=== PATIENT | female | born 1965 | race American Indian/Alaskan Native ===

== ENCOUNTER 2018-11-15 18:44 | Emergency (ER) | payer SELFPAY ==
--- NOTE | 2018-11-15 19:22 | Emergency Department Report ---
Blank Doc - Documentation Documentation: This is a 53-year-old female that presents with vaginal bleeding x1 week. Sta nahid has some dizziness. This initial assessment/diagnostic orders/clinical plan/treatment(s) is/are subject to change based on patient's health status, clinical progression and re- assessment by fellow clinical providers in the ED. Further treatment and workup at subsequent clinical providers discretion. Patient/guardians urged not to elope from the ED as their condition may be serious if not clinically assessed and managed. Initial orders include: 1- Patient sent to [facility] for further evaluation and treatment 2- labs 3- UA
[2018-11-15 19:24] VITALS: BP 137/82
[2018-11-15 19:43] LABS: Basophils # (Auto) 0.1 K/mm3 (0.0-0.1); Eosinophils # (Auto) 0.1 K/mm3 (0.0-0.4); Eosinophils % (Auto) 1.1 % (0.0-4.3); Hematocrit 33.2 % (30.3-42.9); Hemoglobin 10.8 gm/dl (10.1-14.3); Lymphocytes # (Auto) 1.9 K/mm3 (1.2-5.4); Mean Corpuscular HGB Conc 32 % (30-34); Mean Corpuscular Volume 80 fl (79-97); Monocytes # (Auto) 0.8 K/mm3 (0.0-0.8); Monocytes % (Auto) 7.7 % (0.0-7.3); Platelet Count 297 K/mm3 (140-440); Red Blood Count 4.17 M/mm3 (3.65-5.03); Red Cell Distribution Width 17.4 % (13.2-15.2)
[2018-11-15 19:53] LABS: BUN/Creatinine Ratio 14; Blood Urea Nitrogen 11 mg/dL (7-17); Calcium 9.3 mg/dL (8.4-10.2); Hemolysis Index 14
[2018-11-15 21:08] LABS: Bilirubin,Urine NEG (Negative); Color,Urine Red (Yellow)
[2018-11-15 21:09] LABS: Blood,Urine LG (Negative); Mucus,Urine 1+ /HPF; RBC,Urine > 182.0 /HPF (0.0-6.0); Urobilinogen,Urine < 2.0 mg/dL (<2.0)
[2018-11-15 21:10] LABS: HCG Qualitative,Urine Negative (Negative)
[2018-11-15] MEDS ORDERED: ROCEPHIN IM ONE (22:38)
[2018-11-15] MEDS ORDERED: TORADOL IM ONE (22:38)
[2018-11-15] MEDS ORDERED: XYLOCAINE 1% MPF 5 mL INFILTRATI ONE (22:38)
--- NOTE | 2018-11-15 23:40 | Ultrasound Report ---
PROCEDURE: US PELVIC COMPLETE TECHNIQUE: Real-time transabdominal sonography in multiple planes of the pelvis was performed. The p elvic structures, especially the ovaries, were not optimally visualized. Transvaginal sonography was then performed to better evaluate the structures and/or abnormalities described below with image docu mentation. HISTORY: pelvic pain, heavy vaginal bleeding COMPARISONS: None . FINDINGS: UTERUS Size: 14 x 10.4 x 10.2 cm. Endometrial thickness: Not well evaluated due to fibroid within the endometrial region Orientation: anteverted. Cervix: Normal. Fibroids/masses: There is a fibroid identified within the mid uterine myometrium causing pressure on the endometrial region. The fibroid measures up to 7.1 cm.. RIGHT Ovary: Not visualized LEFT Ovary: Not visualized Pelvic fluid: None. Other: None. IMPRESSION: The uterus is enlarged. A large fibroid tumor in the mid uterine myometrium measures up to 7.1 cm. This does obscure the endometrium. Neither ovary is identified on this study.. This document is electronically signed by Fara Montes DO., November 15 2018 11:38:00 PM ET
--- NOTE | 2018-11-15 23:58 | Emergency Department Report ---
ED Female HPI - General Chief complaint: Vaginal Bleeding Stated complaint: HEAVY FLOW/WEAK/DIZZY/CRAMPS EXTREME Time Seen by Provider: 11/15/18 19:21 Source: patient Mode of arrival: Ambulatory Limitations: No Limitations - History of Present Illness Initial comments: Pt is a 53 yo female who presents to the ED with c/o heavy vaginal bleeding that began 4 days ago. She states she has been passing clots and is having to frequently change her sanitary pad. The patient has associated suprapubic abd cramping. She denies any dysuria or vaginal discharge. She denies any fever or N/V. She denies any prior hx of fibroids. she states she last saw an PROPERTY MANAGEMENT COORDINATOR about a year ago. She states she has not been sexually active for a year. - Related Data Previous Rx's Medication Instructions Recorded Last Taken Type Ibuprofen 600 mg PO Q6HR PRN #20 tablet 11/15/18 Unknown Rx Nitrofurantoin Cole/M-Cryst 100 mg PO Q12HR 5 Days #10 capsule 11/15/18 Unknown Rx [Macrobid CAP] Phenazopyridine [Pyridium] 100 mg PO TID #14 tab 11/15/18 Unknown Rx medroxyPROGESTERone ACETATE 10 mg PO QDAY 10 Days #10 tablet 11/15/18 Unknown Rx [Provera] traMADol [Ultram 50 MG tab] 50 mg PO Q6HR PRN #10 tablet 11/15/18 Unknown Rx Allergies Allergy/AdvReac Type Severity Reaction Status Date / Time No Known Allergies Allergy Verified 11/15/18 18:48 ED Review of Systems ROS: Stated complaint: HEAVY FLOW/WEAK/DIZZY/CRAMPS EXTREME Other details as noted in HPI Comment: All other systems reviewed and negative ED Past Medical Hx - Past Medical History Hx Hypertension: Yes Additional medical history: Obesity - Surgical History Past Surgical History?: No - Social History Smoking Status: Never Smoker Substance Use Type: None - Medications Home Medications: Home Medications Medication Instructions Recorded Confirmed Last Taken Type Ibuprofen 600 mg PO Q6HR PRN #20 tablet 11/15/18 Unknown Rx Nitrofurantoin Cole/M-Cryst 100 mg PO Q12HR 5 Days #10 capsule 11/15/18 Unknown Rx [Macrobid CAP] Phenazopyridine [Pyridium] 100 mg PO TID #14 tab 03/28/19 Unknown Rx medroxyPROGESTERone ACETATE 10 mg PO QDAY 10 Days #10 tablet 11/15/18 Unknown Rx [Provera] traMADol [Ultram 50 MG tab] 50 mg PO Q6HR PRN #10 tablet 11/15/18 Unknown Rx ED Physical Exam - General Limitations: No Limitations General appearance: alert, in no apparent distress - Head Head exam: Present: atraumatic, normocephalic - Eye Eye exam: Present: normal appearance - ENT ENT exam: Present: mucous membranes moist - Respiratory Respiratory exam: Present: normal lung sounds bilaterally. Absent: respiratory distress, wheezes, rales, rhonchi, stridor, chest wall tenderness, accessory muscle use, decreased breath sounds, prolonged expiratory - Cardiovascular Cardiovascular Exam: Present: regular rate, normal rhythm, normal heart sounds. Absent: systolic murmur, rubs, gallop - GI/Abdominal GI/Abdominal exam: Present: soft, tenderness (mild suprapubic tenderness ), normal bowel sounds. Absent: distended, guarding, rebound, rigid - Back Exam Back exam: Absent: CVA tenderness (R), CVA tenderness (L) - Neurological Exam Neurological exam: Present: alert, oriented X3 - Psychiatric Psychiatric exam: Present: normal affect, normal mood - Skin Skin exam: Present: warm, dry, intact ED Course Vital Signs 11/15/18 19:21 Temperature 99.7 F H Pulse Rate 101 H Respiratory 16 Rate Blood Pressure 137/82 ED Medical Decision Making - Lab Data Result diagrams: 11/15/18 19:25 11/15/18 19:25 Laboratory Results - last 24 hr 11/15/18 11/15/18 11/15/18 19:25 19:25 19:30 WBC 10.8 RBC 4.17 Hgb 10.8 Hct 33.2 MCV 80 MCH 26 L MCHC 32 RDW 17.4 H Plt Count 297 Lymph % (Auto) 18.0 Cole % (Auto) 7.7 H Eos % (Auto) 1.1 Baso % (Auto) 1.0 Lymph # 1.9 Cole # 0.8 Eos # 0.1 Baso # 0.1 Seg Neutrophils % 72.2 H Seg Neutrophils # 7.8 H Sodium 137 Potassium 3.8 Chloride 96.7 L Carbon Dioxide 27 Anion Gap 17 BUN 11 Creatinine 0.8 Estimated GFR > 60 BUN/Creatinine Ratio 14 Glucose 99 Calcium 9.3 Urine Color Urine Turbidity Urine pH Ur Specific [place] Urine Protein Urine Glucose (UA) Urine Ketones Urine Blood Urine Nitrite Urine Bilirubin Urine Urobilinogen Ur Leukocyte Esterase Urine WBC (Auto) Urine RBC (Auto) Urine Mucus Urine HCG, Qual Blood Type B POSITIVE Antibody Screen Negative 11/15/18 20:39 WBC RBC Hgb Hct MCV MCH MCHC RDW Plt Count Lymph % (Auto) Cole % (Auto) Eos % (Auto) Baso % (Auto) Lymph # Cole # Eos # Baso # Seg Neutrophils % Seg Neutrophils # Sodium Potassium Chloride Carbon Dioxide Anion Gap BUN Creatinine Estimated GFR BUN/Creatinine Ratio Glucose Calcium Urine Color Red Urine Turbidity Cloudy Urine pH 5.0 Ur Specific [place] 1.026 Urine Protein 100 mg/dl Urine Glucose (UA) 50 Urine Ketones Neg Urine Blood Lg Urine Nitrite Neg Urine Bilirubin Neg Urine Urobilinogen < 2.0 Ur Leukocyte Esterase Tr Urine WBC (Auto) 47.0 H Urine RBC (Auto) > 182.0 Urine Mucus 1+ Urine HCG, Qual Negative Blood Type Antibody Screen - Radiology Data Radiology results: report reviewed PROCEDURE: US TRANSVAGINAL TECHNIQUE: Real-time transabdominal sonography in multiple planes of the pelvis was performed. The pelvic structures, especially the ovaries, were not optimally visualized. Transvaginal sonography was then performed to better evaluate the structures and/or abnormalities described below with image documentation. HISTORY: pelvic pain, heavy vaginal bleeding COMPARISONS: None . FINDINGS: UTERUS Size: 14 x 10.4 x 10.2 cm. Endometrial thickness: Not well evaluated due to fibroid within the endometrial region Orientation: anteverted. Cervix: Normal. Fibroids/masses: There is a fibroid identified within the mid uterine myometrium causing pressure on the endometrial region. The fibroid measures up to 7.1 cm.. RIGHT Ovary: Not visualized LEFT Ovary: Not visualized Pelvic fluid: None. Other: None. IMPRESSION: The uterus is enlarged. A large fibroid tumor in the mid uterine myometrium measures up to 7.1 cm. This does obscure the endometrium. Neither ovary is identified on this study.. This document is electronically signed by Fara Montes DO., November 15 2018 11:38:44 PM ET - Medical Decision Making Pt is a 53 yo female who presents to the ED with c/o heavy vaginal bleeding that began 4 days ago. She states she has been passing clots and is having to frequently change her sanitary pad. The patient has associated suprapubic abd cramping. She denies any dysuria or vaginal discharge. She denies any fever or N/V. She denies any prior hx of fibroids. she states she last saw an PROPERTY MANAGEMENT COORDINATOR about a year ago. She states she has not been sexually active for a year. Labs WNL, H/H is normal. VSS. UA shows evidence of UTI. US pelvic shows a 7.1 cm fibroid. Pt given tx for UTI, something for pain, and provera to help with bleeding. Advised to follow up with PROPERTY MANAGEMENT COORDINATOR [facility] and primary care doctor in the next 2-3 days. Pt given copy of US results. Advised to take all medication as prescribed. Return to the ED for any new or worsening symptoms. - Differential Diagnosis UTI, cysts, fibroids, menorrhagia, AUB Critical care attestation.: If time is entered above; I have spent that time in minutes in the direct care of this critically ill patient, excluding procedure time. ED Disposition Clinical Impression: Fibroid, Episode of heavy vaginal bleeding UTI (urinary tract infection) Qualifiers: Urinary tract infection type: acute cystitis Hematuria presence: with hematuria Qualified Code(s): N30.01 - Acute cystitis with hematuria Disposition: TO HOME OR SELFCARE Is pt being admited?: No Does the pt Need Aspirin: No Condition: Stable Instructions: Uterine Fibroids (ED), Urinary Tract Infection in Women (ED) Additional Instructions: Follow up with an PROPERTY MANAGEMENT COORDINATOR [facility]. Keep your appointment with your primary care doctor on November 19. Take medication as prescribed. Return to the emergency room for any new or worsening symptoms. Prescriptions: Ibuprofen 600 mg PO Q6HR PRN #20 tablet PRN Reason: Pain, Mild (1-3) Nitrofurantoin Cole/M-Cryst [Macrobid CAP] 100 mg PO Q12HR 5 Days #10 capsule medroxyPROGESTERone ACETATE [Provera] 10 mg PO QDAY 10 Days #10 tablet Phenazopyridine [Pyridium] 100 mg PO TID #14 tab traMADol [Ultram 50 MG tab] 50 mg PO Q6HR PRN #10 tablet PRN Reason: Pain Referrals: KATIE CHRISTIANSON MD [Primary Care Provider] - 2-3 Days [facility] [Provider [facility]] - [facility] Time of Disposition: 23:52 Print Language: SLOVAK
== END 2018-11-16 00:10 | disposition home or self-care (01) ==
LOC: ED 18:44
DX: D21.9 Benign neoplasm of connective and other soft tissue, unspecified (principal); N39.0 Urinary tract infection, site not specified; N93.9 Abnormal uterine and vaginal bleeding, unspecified; I10 Essential (primary) hypertension; E66.9 Obesity, unspecified
CPT/HCPCS: 36415; 76830; 76856; 80048; 81001; 81025; 85025; 86850; 86900; 86901; 96372; 99284; J0696; J1885

== ENCOUNTER 2020-10-08 12:03 | Outpatient (CLI) | payer MEDICARE ==
[2020-10-08 12:31] LABS: Basophils # (Auto) 0.1 K/mm3 (0.0-0.1); Basophils % (Auto) 0.8 % (0.0-1.8); Eosinophils # (Auto) 0.2 K/mm3 (0.0-0.4); Eosinophils % (Auto) 2.4 % (0.0-4.3); Hematocrit 39.6 % (30.3-42.9); Hemoglobin 13.5 gm/dl (10.1-14.3); Lymphocytes # (Auto) 1.9 K/mm3 (1.2-5.4); Lymphocytes % (Auto) 28.7 % (13.4-35.0); Mean Corpuscular HGB Conc 34 % (30-34); Mean Corpuscular Volume 90 fl (79-97); Monocytes # (Auto) 0.5 K/mm3 (0.0-0.8); Platelet Count 260 K/mm3 (140-440); Red Cell Distribution Width 14.3 % (13.2-15.2)
[2020-10-08 12:50] LABS: % Iron Saturation 21.88 %; Alanine Aminotransferase 15 units/L (7-56); Albumin 4.1 g/dL (3.9-5); BUN/Creatinine Ratio 18; Blood Urea Nitrogen 14 mg/dL (7-17); Calcium 9.8 mg/dL (8.4-10.2); Chol/HDL Ratio 3.79 %; HDL Cholesterol 48 mg/dL (40-59); Hemolysis Index 5; Iron 63 ug/dL (37-170); LDL Cholesterol,Direct 128 mg/dL (50-130); Total Iron Binding Capacity 288 mcg/dL (250-450)
[2020-10-11 21:31] LABS: Vitamin D, 25-OH, D2 <4 ng/mL
== END 2020-10-08 12:04 | disposition home or self-care (01) ==
LOC: LAB 12:03
PROVIDERS: ATTEND Surgery
DX: E11.9 Type 2 diabetes mellitus without complications (principal); E66.01 Morbid (severe) obesity due to excess calories; K30 Functional dyspepsia; R79.1 Abnormal coagulation profile
CPT/HCPCS: 36415; 80053; 80061; 82306; 82607; 82728; 83036; 83550; 84443; 85025; 85730

== ENCOUNTER 2020-10-30 07:12 | Outpatient (CLI) | payer MEDICARE ==
--- NOTE | 2020-10-30 09:10 | Fluoroscopy Report ---
Upper GI HISTORY: FUNCTIONAL DYSPEPSIA. Technique: Single contrast barium technique utilized to evaluate the esophagus, stomach, and duodena l C-loop. Findings: The patient stood for the entire exam. No mucosal irregularity, mass, mass effect, or critical stenosis. There were no abnormal tertiary c ontractions as seen with dysmotility. No gastroesophageal reflux. Impression: Unremarkable exam. Fluoroscopic time: 2.8 minutes Number of fluoroscopic images: 16 Signer Name: Fady Atkinson MD Signed: 10/30/2020 9:05 AM Workstation Name: [id number]
--- NOTE | 2020-10-30 10:44 | Treadmill Report ---
TREADMILL STRESS TEST REFERRING PHYSICIAN: Dr. Dominguez. PROCEDURE IN DETAIL: The patient was brought to the stress lab in a postabsorptive state exercised on a standard Raoul protocol treadmill. She went 6 minutes and 30 seconds on a standard Raoul protocol treadmill. No chest pain or arrhythmias. Baseline EKG is normal. Baseline heart rate is 60, peak heart rate was 150, target heart rate is 141, peak blood pressure is 157/80. She has no chest pain, no EKG changes, no arrhythmias. The patient did well during stress and recovery. CONCLUSIONS: 1. Normal exercise stress test without evidence of diagnostic ST changes, arrhythmias, or chest pain during stress or recovery. 2. Average exercise tolerance. 3. Appropriate heart rate/blood pressure response in recovery. JOB# [id number] IAM/KAYLEE
== END 2020-10-30 07:13 | disposition home or self-care (01) ==
LOC: FLUORO 07:12
PROVIDERS: ATTEND Surgery
DX: K30 Functional dyspepsia (principal)
CPT/HCPCS: 74246; 93017

== ENCOUNTER → 2020-12-24 | Outpatient (CLI) | payer MEDICARE | END | disposition home or self-care (01) | LOC: SLR 11:00 | PROVIDERS: ATTEND Surgery | DX: G47.33 Obstructive sleep apnea (adult) (pediatric) (principal); R40.0 Somnolence; E66.9 Obesity, unspecified | CPT/HCPCS: G0399 ==

== ENCOUNTER → 2021-01-21 | Outpatient (CLI) | payer MEDICARE | END | disposition home or self-care (01) | LOC: SLR 11:00 | PROVIDERS: ATTEND Otolaryngology | DX: G47.33 Obstructive sleep apnea (adult) (pediatric) (principal); E66.9 Obesity, unspecified; R40.0 Somnolence | CPT/HCPCS: 95811 ==

== ENCOUNTER 2021-02-03 11:58 | Outpatient (CLI) | payer MEDICARE ==
--- NOTE | 2021-02-05 03:56 | Pulmonary Function Test ---
DATE OF VISIT: 02/03/2021 PULMONARY FUNCTION TEST INTERPRETATION DATE OF SERVICE: 02/03/2021. SPIROMETRY: FVC 3.05 liters, which is 103% of the predicted. FEV1 is 2.64 liters, which is 110% of the predicted. FEV1/FVC ratio is 85. Flow volume loop. FEF 25-75% is 3.06 liters per second, which is 127% of the predicted. The patient's MVV is 77% of the predicted. IMPRESSION: Normal spirometry. TID: [id number] RECEIPT: [id number] [facility] cc: Niraj Dominguez
== END 2021-02-03 11:59 | disposition home or self-care (01) ==
LOC: PF 11:58
PROVIDERS: ATTEND Surgery
DX: R06.02 Shortness of breath (principal); E66.2 Morbid (severe) obesity with alveolar hypoventilation
CPT/HCPCS: 94010

== ENCOUNTER 2021-05-11 07:51 | Day surgery (SDC) | payer MEDICARE ==
[~2021-05-11 07:51] MED LIST: SODIUM CHLORIDE 0.9% 1000 ML 1,000 ML IV SCH
--- NOTE | 2021-05-11 09:35 | Discharge Summary ---
Providers - Providers Date of Admission: 05/11/2021 Date of discharge: 05/11/21 Attending physician: DENNYS BELL MD Primary care physician: LOI WEAVER NP Hospitalization Reason for admission: pre-op planning for bariatric surgery Condition: Good Procedures: egd with bx Hospital course: Pt presented for a pre-op EGD as part of planning for up coming bariatric surgery. Procedure was uneventful and pt recovered well and was discharged to home. Disposition: 01 HOME / SELF CARE / HOMELESS Final Discharge Diagnosis (Prints w/discharge instructions): morbid obesity, gerd Core Measure Documentation - Palliative Care Palliative Care/ Comfort Measures: Not Applicable - Core Measures Any of the following diagnoses?: none Exam - Physical Exam Narrative exam: unchanged from pre-op Plan Activity: advance as tolerated Diet: low carbohydrate Follow up with: LOI WEAVER NP [Primary Care Provider] - 7 Days
--- NOTE | 2021-05-11 09:36 | Operative Report ---
Operative Report Operative Report: DATE: 05/11/2021 SURGERY: Upper endoscopy. SURGEON: Niraj Dominguez M.D. PROCEDURE: EGD with biopsy PRE OP DX: morbid obesity, GERD POST OP DX: morbid obesity, GERD TYPE OF ANESTHESIA: MAC. ESTIMATED BLOOD LOSS: None. COMPLICATIONS: None. SPECIMENS REMOVED: antral biopsy FINDINGS: 1. Small hiatal hernia. 2. Otherwise, normal esophagus, stomach and first portion of duodenum. INDICATIONS:INDICATION FOR PROCEDURE: Patient is a 56-year-old female with a long history of morbid obesity. She is planned to have a weight loss procedure and is here for preoperative planning EGD. PROCEDURE DETAILS: After consent was reviewed, patient was taken back to the operating room where patient was placed in the left lateral decubitus position and a bite block was placed in the mouth. After a time-out was called, MAC anesthesia was initiated. I then passed the endoscope into her oropharynx, into her esophagus, visualized the entire esophagus, which was all within normal limits. Z-line was noted to about 38cm from incisors. I then visualized the stomach and the first portion of the duodenum and there were no abnormalities I could clearly visualize except for antral gastritis. A cold forceps biopsy of the antrum was taken and will be sent to pathology to evaluate for H.pylori. I then retroflexed the scope in the stomach and visualized the hiatus and I could see a small hiatal hernia. I then desufflated the stomach and removed the endoscope. Patient tolerated procedure well and was transferred to recovery room in good and stable condition.
--- NOTE | 2021-05-11 09:38 | Anesthesia Consultation ---
Anesthesia Consult and Med Hx Date of service: 05/11/21 - Airway Anesthetic Teeth Evaluation: Poor (some missing teeth) ROM Head & Neck: Adequate Mental/Hyoid Distance: Adequate Mallampati Class: Class III Intubation Access Assessment: Possibly Difficult - Pre-Operative Health Status ASA Pre-Surgery Classification: ASA3 Proposed Anesthetic Plan: MAC - Pulmonary Hx Smoking: Yes Hx Asthma: Yes Hx Sleep Apnea: Yes (uses BiPAP) - Cardiovascular System Hx Hypertension: Yes - Central Nervous System Hx Psychiatric Problems: Yes (anxiety/depression) - Gastrointestinal Hx Gastroesophageal Reflux Disease: Yes - Other Systems Hx Obesity: Yes (Morbid obesity, BMI 50.5)
--- NOTE | 2021-05-11 09:40 | Anesthesia Day of Surgery ---
Anesthesia Day of Surgery - Day of Surgery Patient Examined: Yes Patient H&P Reviewed: Yes Patient is NPO: Yes
[2021-05-11] MEDS ORDERED: propofoL 200 MG/20 ML VIAL IV ONE (10:34)
[2021-05-11 12:07] VITALS: BP 127/71
--- NOTE | 2021-05-11 17:49 | Post Anesthesia Evaluation ---
- Post Anesthesia Evaluation Patient Participated: Yes Airway Patent: Yes Stable Respiratory Function: Yes Nausea/Vomiting: No Temp > 96.8F: Yes Pain Manageable: Yes Adequeate Hydration: Yes Anesthesia Complications: No Block Receding Appropriately: Not Applicable Patient on Ventilator: No
== END 2021-05-11 12:15 | disposition home or self-care (01) ==
LOC: GIO 07:51
PROVIDERS: ATTEND Surgery
DX: E66.01 Morbid (severe) obesity due to excess calories (principal); K21.9 Gastro-esophageal reflux disease without esophagitis; K30 Functional dyspepsia; K44.9 Diaphragmatic hernia without obstruction or gangrene; K29.60 Other gastritis without bleeding; K31.89 Other diseases of stomach and duodenum; I10 Essential (primary) hypertension; G47.30 Sleep apnea, unspecified; F41.9 Anxiety disorder, unspecified; F32.9 Major depressive disorder, single episode, unspecified; J45.909 Unspecified asthma, uncomplicated; Z79.899 Other long term (current) drug therapy; Z68.43 Body mass index [BMI] 50.0-59.9, adult
CPT/HCPCS: 43239; 88305; 88342; J2704; J7030

== ENCOUNTER 2021-06-28 06:09 | Inpatient (IN) | payer MEDICARE ==
--- NOTE | 2021-06-23 14:07 | Anesthesia Consultation ---
Anesthesia Consult and Med Hx Date of service: 06/28/21 - Airway Anesthetic Teeth Evaluation: Partials (Upper) ROM Head & Neck: Adequate Mental/Hyoid Distance: Adequate Mallampati Class: Class I Intubation Access Assessment: Good - Pre-Operative Health Status ASA Pre-Surgery Classification: ASA3 Proposed Anesthetic Plan: General - Pulmonary Hx Smoking: Yes Hx Asthma: Yes Hx Respiratory Symptoms: No (+2FS. + Pulm clearance) Hx Sleep Apnea: Yes - Cardiovascular System Hx Hypertension: Yes Hx Heart Attack/AMI: No (Negative stress test) - Central Nervous System Hx Psychiatric Problems: No (+Psych clearance) - Gastrointestinal Hx Gastroesophageal Reflux Disease: Yes - Endocrine Hx Non-Insulin Dependent Diabetes: No - Hematic Hx Sickle Cell Disease: No - Other Systems Hx Alcohol Use: Yes (Occas) Hx Substance Use: Yes (Marijuana daily) Hx Cancer: No Hx Obesity: Yes (Morbid obesity, BMI 50.5)
[2021-06-23 14:35] LABS: Hematocrit 38.2 % (30.3-42.9); Hemoglobin 12.7 gm/dl (10.1-14.3); Mean Corpuscular HGB Conc 33 % (30-34); Mean Corpuscular Volume 88 fl (79-97); Platelet Count 263 K/mm3 (140-440); Red Blood Count 4.33 M/mm3 (3.65-5.03); Red Cell Distribution Width 14.1 % (13.2-15.2)
[2021-06-23 14:50] LABS: Alanine Aminotransferase 15 units/L (7-56); Albumin 4.3 g/dL (3.9-5); Blood Urea Nitrogen 12 mg/dL (7-17); Calcium 9.6 mg/dL (8.4-10.2); Hemolysis Index 6
[2021-06-23 14:51] LABS: BUN/Creatinine Ratio 20
[~2021-06-28 06:09] MED LIST changes: +ACETAMINOPHEN IV 1,000 MG/100 ML BOTTLE IV NR; +ENOXAPARIN 40 MG/0.4 ML INJ SUB-Q NR; +GABAPENTIN 500 MG/10 ML ORAL LIQD PO NR; +MIDAZOLAM 2 MG/2 ML INJ IV NR; +PIPERACIL/TAZOBACTA 4.5/NS 100 4.5 GM/100 ML VIAL IV SCH; +SCOPOLAMINE TRANSDERMAL PATCH 72 HR TD NR; -SODIUM CHLORIDE 0.9% 1000 ML 1,000 ML IV SCH
[2021-06-28] MEDS: LACTATED RINGERS 1,000 ML IV SCH (09:00)
[2021-06-28] MEDS ORDERED: SUGAMMADEX SODIUM 200 MG/2 ML VIAL IV ONE ×2 (09:04→12:29)
[2021-06-28] MEDS ORDERED: MAGNESIUM SULFATE 4 GM/100 ML BAG IV ONE (09:05)
[2021-06-28] MEDS ORDERED: KETAMINE/STERILE WATER 50 MG/ML SYRINGE ONE (09:11)
[2021-06-28] MEDS ORDERED: dexAMETHasone 20 MG/5 ML VIAL ONE (09:11)
--- NOTE | 2021-06-28 09:14 | Anesthesia Day of Surgery ---
Anesthesia Day of Surgery - Day of Surgery Patient Examined: Yes Patient H&P Reviewed: Yes Patient is NPO: Yes
[2021-06-28] MEDS ORDERED: ONDANSETRON 4 MG/2 ML INJ IV PRN ×2 (09:15→12:57)
[2021-06-28] MEDS ORDERED: HYDROmorphone 1 MG/1 ML INJ IV PRN (09:15)
[2021-06-28] MEDS ORDERED: LIDOCAINE 1%/EPINEPHRINE 1:100,000 VIAL (20 ML) INFILTRATI ONE ×2 (09:21→10:50)
[2021-06-28] MEDS ORDERED: BUPIVACAINE/PF (0.25%) 2.5 MG/ML 30 ML VIAL INFILTRATI ONE ×2 (09:21→10:50)
[2021-06-28] MEDS ORDERED: LIDOCAINE MPF (2%) 20 MG/1 ML VIAL 5 ML ONE (09:38)
[2021-06-28] MEDS ORDERED: methOCARBAMOL 1,000 MG in SODIUM CHLORIDE 0.9% 250ML 250 ML IV ONE (10:00)
[2021-06-28] MEDS ORDERED: ePHEDrine SULFATE 50 MG/1 ML INJ ONE (10:25)
[2021-06-28] MEDS ORDERED: SODIUM CHLORIDE 0.9% IRR 1,500 ML BOTTLE IR ONE (10:51)
[2021-06-28] MEDS ORDERED: SODIUM CHLORIDE 0.9% IRRIG SOLN 2000 ML IR ONE (10:51)
[2021-06-28] MEDS ORDERED: propofoL 200 MG/20 ML VIAL IV ONE ×6 (10:58→12:14)
[2021-06-28] MEDS ORDERED: PHENYLEPHRINE/NS 1,000 MCG/10 ML SYRINGE (OR USE) IV ONE (11:00)
[2021-06-28] MEDS ORDERED: ONDANSETRON 4 MG/2 ML INJ ONE (11:43)
[2021-06-28] MEDS ORDERED: ROCURONIUM 50 MG/5 ML INJ IV ONE (11:43)
[2021-06-28] MEDS ORDERED: KETOROLAC 30 MG/1 ML INJ ONE (11:43)
[2021-06-28] MEDS ORDERED: LACTATED RINGERS 1,000 ML ONE (11:44)
[2021-06-28] MEDS ORDERED: METOCLOPRAMIDE 10 MG/2 ML INJ IV PRN (12:57)
[2021-06-28] MEDS ORDERED: hydrALAZINE 20 MG/1 ML INJ IV PRN (12:57)
[2021-06-28] MEDS ORDERED: MORPHINE 2 MG/1 ML INJ IV PRN (12:57)
[2021-06-28] MEDS ORDERED: ALBUTEROL 8.5 GM MDI INHALATION IH PRN (13:03)
--- NOTE | 2021-06-28 13:08 | Operative Report ---
Operative Report Operative Report: DATE OF PROCEDURE: SURGEON: Niraj Dominguez M.D. TUBE WINDER: Jules Vieira CSA MD PREOPERATIVE DIAGNOSIS: Morbid obesity. POSTOPERATIVE DIAGNOSES: Morbid obesity PROCEDURES PERFORMED: 1. Laparoscopic gastric bypass. 2. laparoscopic hiatal hernia repair 3. EGD. ANESTHESIA: General endotracheal tube intubation. TAP block SPECIMENS: None. ESTIMATED BLOOD LOSS: Less than 20 mL. FINDINGS: Normal anatomy. COMPLICATIONS: None. INDICATION: Ms. Manzo is a 56-year-old female with history of morbid obesity, htn, and RICCO who is here for bariatric surgery for weight loss. She signed informed consent and expressed understanding of risks and benefits. DESCRIPTION OF PROCEDURE: Patient was brought to the OR suite, laid in supine position. Bilateral lower extremity SCDs were placed. General anesthesia was induced via successful endotracheal tube intubation. Patient's abdomen was prepped and draped in sterile fashion. A veress needle was used to insuflate the abdomen to a pressure of 18 mmHg in the left subcostal region. Using Optiview technique, a 5- mm trocar was placed into the abdominal cavity under direct vision just superior and to the left of the umbilicus. There was noted to be no gross injury to any intraabdominal structures. 12 mm in the right mid abdomen mid clavicular line and three 5-mm trocars in the right upper quadrant, epigastric areas were placed under direct visualization. At this time, the ligament of Treitz identified and followed down approximately 70 cm and the jejunum was transected. The distal segment of jejunum was then traced for approximately 100 cm and a stable [id number] jejunojejunostomy was performed. The common enterotomy was closed with 2 firings of the endoscopic stapler. The mesenteric defect was closed with running Surgidac suture. This anastomosis was found to be patent without kink, obstruction or bleeding. At this time, the patient was placed in steep reverse Trendelenburg position. A liver retractor was placed through the epigastric port to elevate the left lateral lobe of the liver. The superior gastric fat pad was dissected. The right and left crura were skeletonized accentuating a moderate sized hiatal hernia with the GE junction to be approximately 2 cm above the level of the hiatus. The esophagus and GE junction were skeletonized from the hiatal hernia sac until the GE junction was resting comfortably about 2 cm below the level diaphragm without tension. An anterior crura plasty was performed using 2 Surgidac sutures in a U stitch configuration. A small gastric pouch was formed with serial firings of the blue load on a laparoscopic stapler. The Garry limb was then brought in an antegastric antecolic fashion and secured with 2 stay sutures to the gastric pouch. After this, the enterotomies were made with Harmonic scalpel, and a [id number] stapled gastrojejunostomy was performed with a mechanical stapler. After this, a 2-layer running closure using absorbable V-lock suture were done, the first being mucosal approximation prior to completion of the first layer. Then I passed and an EGD scope beyond the anastomosis to act as a stent. The first layer was completed, the second was then performed. After this, the EGD was retracted slightly. A bowel clamp was placed in a proximal Garry limb. The anastomosis was submerged under saline. Via intraluminal EGD insufflation, there was noted be no bubbles in the saline indicating an airtight anastomosis. There was noted to be no obstruction or bleeding intraluminally in the pouch or the anastomosis. At this time, the scope was removed. The saline was aspirated. Tiseel was placed over the anastomosis. All trocars were removed under direct visualization and the abdomen was then desufflated. A TAP block was performed using a total of 60 mL 0.25% Marcaine along bilateral mid axillary lines starting at the subcostal margin at the level of the umbilicus. The 12mm trocar site was closed using POD and a Mike William device for fear that after surgery it become incarcerated. The skin in cisions were closed with 4-0 Monocryl followed by Dermabond dressings. Patient was awoken and taken to recovery in stable condition. All counts were correct.
--- NOTE | 2021-06-28 15:17 | Post Anesthesia Evaluation ---
- Post Anesthesia Evaluation Patient Participated: Yes Airway Patent: Yes Stable Respiratory Function: Yes Nausea/Vomiting: No Temp > 96.8F: Yes Pain Manageable: Yes Adequeate Hydration: Yes Anesthesia Complications: No Other Comments: Patient complained of "squeezing" chest and epigastric pain in PACU. HD stable at preop baseline on minimal O2 via NC. STAT 12-lead EKG and troponins were unremarkable. Patient reassured that pain is likely due to surgical procedure however she was instructed to let floor RN know immediately if pain worsened or associated symptoms developed. Surgeon made aware of PACU events.
[2021-06-28] MEDS ORDERED: ALBUTEROL 2.5 MG/3 ML NEBU IH PRN (15:48)
[2021-06-28] MEDS: HYDROmorphone 1 MG/1 ML INJ IV PRN (18:45)
[2021-06-28] MEDS: PANTOPRAZOLE 40 MG INJ IV SCH (18:48)
[2021-06-28] MEDS: KETOROLAC 30 MG/1 ML INJ IV SCH (18:56)
[2021-06-28] MEDS: PIPERACIL/TAZOBACTA 4.5/NS 100 4.5 GM/100 ML VIAL IV SCH (21:41)
[2021-06-28] MEDS: ACETAMINOPHEN IV 1,000 MG/100 ML BOTTLE IV SCH (22:28)
[2021-06-29] MEDS: KETOROLAC 30 MG/1 ML INJ IV SCH ×5 (01:30→21:12)
[2021-06-29] MEDS: LACTATED RINGERS 1,000 ML IV SCH ×2 (04:05→16:38)
[2021-06-29] MEDS: HYDROmorphone 1 MG/1 ML INJ IV PRN ×2 (04:05→10:41)
[2021-06-29] MEDS: ACETAMINOPHEN IV 1,000 MG/100 ML BOTTLE IV SCH ×3 (04:06→20:03)
[2021-06-29] MEDS: SIMETHICONE 80 MG CHEW TAB PO PRN ×2 (04:24→14:11)
[2021-06-29] MEDS: PIPERACIL/TAZOBACTA 4.5/NS 100 4.5 GM/100 ML VIAL IV SCH ×2 (07:17→20:02)
[2021-06-29 07:34] LABS: Basophils % (Auto) 0.3 % (0.0-1.8); Eosinophils % (Auto) 0.1 % (0.0-4.3); Hemoglobin 12.9 gm/dl (10.1-14.3); Lymphocytes # (Auto) 1.1 K/mm3 (1.2-5.4); Lymphocytes % (Auto) 13.2 % (13.4-35.0); Mean Corpuscular HGB Conc 33 % (30-34); Mean Corpuscular Volume 87 fl (79-97); Monocytes # (Auto) 0.6 K/mm3 (0.0-0.8); Platelet Count 267 K/mm3 (140-440); Red Cell Distribution Width 14.1 % (13.2-15.2)
[2021-06-29 07:57] LABS: Alanine Aminotransferase 40 units/L (7-56); Albumin 3.9 g/dL (3.9-5); Blood Urea Nitrogen 10 mg/dL (7-17); Calcium 9.2 mg/dL (8.4-10.2); Hemolysis Index 7
[2021-06-29 08:37] LABS: BUN/Creatinine Ratio 14
--- NOTE | 2021-06-29 09:29 | Post Anesthesia Evaluation ---
- Post Anesthesia Evaluation Patient Participated: Yes Airway Patent: Yes Stable Respiratory Function: Yes Nausea/Vomiting: No Temp > 96.8F: Yes Pain Manageable: Yes Adequeate Hydration: Yes Anesthesia Complications: No Block Receding Appropriately: Not Applicable Patient on Ventilator: No Other Comments: Patient is mostly comfortable, ambulates. Some mild discomfort in the upper epigastrium controlled with pain meds
[2021-06-29] MEDS: PANTOPRAZOLE 40 MG INJ IV SCH (10:34)
[2021-06-29] MEDS: amLODIPine 5 MG TAB PO SCH (10:35)
[2021-06-29] MEDS: LISINOPRIL 40 MG TAB PO SCH (10:39)
[2021-06-29] MEDS: ENOXAPARIN 40 MG/0.4 ML INJ SUB-Q SCH (10:40)
--- NOTE | 2021-06-29 11:18 | Electrocardiograph Report ---
[facility] Test Date: 2021-06-28 Test Time: 14:42:05 Pat Name: LORI CALDERON Department: Room: A463 Gender: F Process Developer: TUAN : 1965 Requested By: TRISH QUEZADA Order Number: [id number] Reading MD: Shahnaz Barriga Measurements Intervals [place] Rate: 55 P: 60 NV: 181 QRS: -5 QRSD: 103 T: 36 QT: 496 QTc: 473 Interpretive Statements Sinus arrhythmia Probable left ventricular hypertrophy No previous ECG available for comparison Electronically Signed On 06-29-2021 11:18:18 EST by Shahnaz Barriga
--- NOTE | 2021-06-29 16:02 | Progress Note ---
Assessment and Plan POD#1 s/p lap gastric bypass. Afebrile and stable but not drinking enough to feel comfortable to discharge today. If does well overnight will discharge tomorrow. Encourage small more frequent sips of liquids. Subjective Date of service: 06/29/21 Narrative: No acute events overnight. Patient says pain is controlled and she is ambulating fairly well. Patient is not drinking as much as she should due to discomfort in her epigastric area which is likely due to her hiatal hernia repair. Patient denies any nausea vomiting. Objective Vital Signs - 12hr 06/29/21 06/29/21 06/29/21 04:06 07:17 10:00 Temperature 97.7 F Pulse Rate Respiratory 20 16 Rate Blood Pressure 155/96 O2 Sat by Pulse 96 Oximetry 06/29/21 06/29/21 06/29/21 10:35 10:39 11:15 Temperature 98.5 F Pulse Rate 58 L 58 L 64 Respiratory 18 Rate Blood Pressure 170/81 170/81 183/97 O2 Sat by Pulse 97 Oximetry 06/29/21 12:00 Temperature Pulse Rate Respiratory 18 Rate Blood Pressure O2 Sat by Pulse 96 Oximetry - General physical appearance well developed, no distress - Eyes PERRL - ENT no hearing loss - Respiratory normal expansion, normal respiratory effort - Abdomen soft, other (incisions c/d/i, appropriately tender to palpation) - Labs 06/29/21 06:42 06/29/21 06:42 Diabetes panel 06/29/21 Range/Units 06:42 Sodium 135 L (137-145) mmol/L Potassium 4.9 (3.6-5.0) mmol/L Chloride 99.5 (98-107) mmol/L Carbon Dioxide 23 (22-30) mmol/L BUN 10 (7-17) mg/dL Creatinine 0.7 (0.6-1.2) mg/dL Glucose 94 (65-100) mg/dL Calcium 9.2 (8.4-10.2) mg/dL AST 31 (5-40) units/L ALT 40 (7-56) units/L Alkaline Phosphatase 71 (35-129) units/L Total Protein 7.3 (6.3-8.2) g/dL Albumin 3.9 (3.9-5) g/dL Calcium panel 06/29/21 Range/Units 06:42 Calcium 9.2 (8.4-10.2) mg/dL Albumin 3.9 (3.9-5) g/dL Pituitary panel 06/29/21 Range/Units 06:42 Sodium 135 L (137-145) mmol/L Potassium 4.9 (3.6-5.0) mmol/L Chloride 99.5 (98-107) mmol/L Carbon Dioxide 23 (22-30) mmol/L BUN 10 (7-17) mg/dL Creatinine 0.7 (0.6-1.2) mg/dL Glucose 94 (65-100) mg/dL Calcium 9.2 (8.4-10.2) mg/dL Adrenal panel 06/29/21 Range/Units 06:42 Sodium 135 L (137-145) mmol/L Potassium 4.9 (3.6-5.0) mmol/L Chloride 99.5 (98-107) mmol/L Carbon Dioxide 23 (22-30) mmol/L BUN 10 (7-17) mg/dL Creatinine 0.7 (0.6-1.2) mg/dL Glucose 94 (65-100) mg/dL Calcium 9.2 (8.4-10.2) mg/dL Total Bilirubin 0.30 (0.1-1.2) mg/dL AST 31 (5-40) units/L ALT 40 (7-56) units/L Alkaline Phosphatase 71 (35-129) units/L Total Protein 7.3 (6.3-8.2) g/dL Albumin 3.9 (3.9-5) g/dL
[2021-06-29] MEDS: HYDROcodone/Acetaminophen 7.5-325MG-15ML ORAL LIQD PO PRN (16:45)
[2021-06-30] MEDS: LACTATED RINGERS 1,000 ML IV SCH (01:47)
[2021-06-30] MEDS: KETOROLAC 30 MG/1 ML INJ IV SCH ×2 (01:47→07:45)
[2021-06-30 06:55] LABS: Basophils # (Auto) 0.1 K/mm3 (0.0-0.1); Eosinophils % (Auto) 0.4 % (0.0-4.3); Hemoglobin 12.5 gm/dl (10.1-14.3); Lymphocytes # (Auto) 2.2 K/mm3 (1.2-5.4); Lymphocytes % (Auto) 35.1 % (13.4-35.0); Mean Corpuscular HGB Conc 33 % (30-34); Mean Corpuscular Volume 87 fl (79-97); Monocytes # (Auto) 0.5 K/mm3 (0.0-0.8); Monocytes % (Auto) 8.5 % (0.0-7.3); Platelet Count 245 K/mm3 (140-440); Red Blood Count 4.39 M/mm3 (3.65-5.03); Red Cell Distribution Width 14.2 % (13.2-15.2)
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
[2021-06-30 07:17] LABS: Alanine Aminotransferase 30 units/L (7-56); Albumin 3.8 g/dL (3.9-5); BUN/Creatinine Ratio 11; Blood Urea Nitrogen 8 mg/dL (7-17); Calcium 9.4 mg/dL (8.4-10.2); Hemolysis Index 15
[2021-06-30 08:29] VITALS: BP 137/69
[2021-06-30] MEDS: PANTOPRAZOLE 40 MG INJ IV SCH (09:48)
[2021-06-30] MEDS: LISINOPRIL 40 MG TAB PO SCH (09:48)
[2021-06-30] MEDS: amLODIPine 5 MG TAB PO SCH (09:50)
--- NOTE | 2021-06-30 09:51 | Discharge Summary ---
Providers - Providers Date of Admission: 06/28/21 11:50 Date of discharge: 06/30/21 Attending physician: DENNYS BELL MD 06/28/21 12:57 Physical Therapy Evaluation and Treat [CONS] Routine Comment: Reason For Exam: post op bariatric surgery Primary care physician: LOI WEAVER NP Hospitalization Reason for admission: s/p bariatric surgery Condition: Good Procedures: lap gastric bypass with hiatal hernia repair Hospital course: Patient had an uncomplicated course status post an uneventful laparoscopic gastric bypass with hiatal hernia repair for morbid obesity. Patient remained afebrile and stable with laboratory results and vitals within acceptable limits. Patient was ambulating well with pain controlled, she was tolerating her liquids better by postop day 2. She was discharged on postoperative day 2 showing no gross clinical signs of leak or bleeding. Patient to follow-up in the office in 2 weeks. Disposition: 01 HOME / SELF CARE / HOMELESS Final Discharge Diagnosis (Prints w/discharge instructions): Morbid obesity, hypertension, obstructive sleep apnea Core Measure Documentation - Palliative Care Palliative Care/ Comfort Measures: Not Applicable - Core Measures Any of the following diagnoses?: none Exam - Constitutional Vitals: Temp Pulse Resp BP Pulse Ox 98.0 F 56 L 18 137/69 97 06/30/21 07:26 06/30/21 09:48 06/30/21 07:26 06/30/21 07:26 06/30/21 07:26 General appearance: Present: no acute distress, obese - EENT Eyes: Present: PERRL - Neck Neck: Present: supple - Respiratory Respiratory effort: normal - Cardiovascular Heart Sounds: Present: S1 & S2 - Extremities Extremities: no ischemia - Abdominal General gastrointestinal: Present: other (Incisions clean dry and intact, appropriately tender to palpation) Plan Activity: advance as tolerated Diet: clear liquids Wound: open to air, keep clean and dry Follow up with: LOI WEAVER NP [Primary Care Provider] - 7 Days
[2021-06-30] MEDS: HYDROcodone/Acetaminophen 7.5-325MG-15ML ORAL LIQD PO PRN (10:06)
[2021-06-30] MEDS: ENOXAPARIN 40 MG/0.4 ML INJ SUB-Q SCH (10:14)
== END 2021-06-30 12:30 | disposition home or self-care (01) | DRG 621 ==
LOC: 3A 11:50 → 4A 14:50
PROVIDERS: ADMIT Surgery; ATTEND Surgery
PROC: 0D164ZA Bypass Stomach to Jejunum, Percutaneous Endoscopic Approach (ICD-10-PCS; principal; 2021-06-28)
PROC: 0BQT4ZZ Repair Diaphragm, Percutaneous Endoscopic Approach (ICD-10-PCS; 2021-06-28)
PROC: 0DJ08ZZ Inspection of Upper Intestinal Tract, Via Natural or Artificial Opening Endoscopic (ICD-10-PCS; 2021-06-28)
DX: E66.01 Morbid (severe) obesity due to excess calories (principal); Z68.42 Body mass index [BMI] 45.0-49.9, adult; K21.9 Gastro-esophageal reflux disease without esophagitis; I10 Essential (primary) hypertension; F17.200 Nicotine dependence, unspecified, uncomplicated; J45.909 Unspecified asthma, uncomplicated; K44.9 Diaphragmatic hernia without obstruction or gangrene; Z20.822 Contact with and (suspected) exposure to COVID-19
CPT/HCPCS: 36415; 80053; 84484; 84703; 85025; 85027; 93005; 94640; 94660; G0378; C9113; J0131; J1100; J1170; J1650; J1885; J2370; J2405; J2543; J2704; J3475; J3490; J7120; U0003

== ENCOUNTER 2021-07-26 08:55 | Outpatient (CLI) | payer MEDICARE ==
[2021-07-26 09:40] LABS: Basophils % (Auto) 0.9 % (0.0-1.8); Eosinophils # (Auto) 0.1 K/mm3 (0.0-0.4); Hemoglobin 11.9 gm/dl (10.1-14.3); Lymphocytes # (Auto) 1.3 K/mm3 (1.2-5.4); Lymphocytes % (Auto) 29.6 % (13.4-35.0); Mean Corpuscular HGB Conc 32 % (30-34); Mean Corpuscular Volume 87 fl (79-97); Monocytes # (Auto) 0.5 K/mm3 (0.0-0.8); Monocytes % (Auto) 10.9 % (0.0-7.3); Platelet Count 200 K/mm3 (140-440); Red Blood Count 4.25 M/mm3 (3.65-5.03); Red Cell Distribution Width 14.2 % (13.2-15.2)
[2021-07-26 10:22] LABS: Alanine Aminotransferase 13 units/L (7-56); Albumin 4.1 g/dL (3.9-5); BUN/Creatinine Ratio 15; Blood Urea Nitrogen 9 mg/dL (7-17); Calcium 9.6 mg/dL (8.4-10.2); Chol/HDL Ratio 4.24 %; HDL Cholesterol 37 mg/dL (40-59); Hemolysis Index 5; Iron 60 ug/dL (37-170); LDL Cholesterol,Direct 97 mg/dL (50-130); Total Iron Binding Capacity 198 mcg/dL (250-450)
== END 2021-07-26 08:56 | disposition home or self-care (01) ==
LOC: LAB 08:55
PROVIDERS: ATTEND Surgery
DX: E66.01 Morbid (severe) obesity due to excess calories (principal); E55.9 Vitamin D deficiency, unspecified; K90.9 Intestinal malabsorption, unspecified; K30 Functional dyspepsia; Z98.84 Bariatric surgery status
CPT/HCPCS: 36415; 80053; 80061; 82306; 82607; 82728; 83550; 84425; 84443; 85025

== ENCOUNTER 2022-02-04 16:06 | Outpatient (CLI) | payer MEDICARE ==
[2022-02-04 16:56] LABS: Basophils % (Auto) 0.8 % (0.0-1.8); Eosinophils # (Auto) 0.1 K/mm3 (0.0-0.4); Eosinophils % (Auto) 2.3 % (0.0-4.3); Hematocrit 39.9 % (30.3-42.9); Hemoglobin 12.7 gm/dl (10.1-14.3); Lymphocytes # (Auto) 2.2 K/mm3 (1.2-5.4); Lymphocytes % (Auto) 46.1 % (13.4-35.0); Mean Corpuscular HGB Conc 32 % (30-34); Mean Corpuscular Volume 93 fl (79-97); Monocytes # (Auto) 0.3 K/mm3 (0.0-0.8); Monocytes % (Auto) 5.6 % (0.0-7.3); Red Blood Count 4.29 M/mm3 (3.65-5.03)
[2022-02-04 18:06] LABS: Alanine Aminotransferase 19 units/L (7-56); Albumin 4.7 g/dL (3.9-5); BUN/Creatinine Ratio 20; Blood Urea Nitrogen 16 mg/dL (7-17); Calcium 10.2 mg/dL (8.4-10.2); Chol/HDL Ratio 3.06 %; HDL Cholesterol 60 mg/dL (40-59); Hemolysis Index 12; Iron 38 ug/dL (37-170); LDL Cholesterol,Direct 102 mg/dL (50-130)
[2022-02-04 18:07] LABS: % Iron Saturation 13.52 %; Total Iron Binding Capacity 281 mcg/dL (250-450)
[2022-02-04 19:20] LABS: Platelet Count 125 K/mm3 (140-440)
== END 2022-02-04 16:07 | disposition home or self-care (01) ==
LOC: LAB 16:06
PROVIDERS: ATTEND Surgery
DX: Z13.29 Encounter for screening for other suspected endocrine disorder (principal); Z13.21 Encounter for screening for nutritional disorder; K30 Functional dyspepsia; E11.9 Type 2 diabetes mellitus without complications; Z55.9 Problems related to education and literacy, unspecified; K90.9 Intestinal malabsorption, unspecified; Z98.84 Bariatric surgery status; E66.01 Morbid (severe) obesity due to excess calories
CPT/HCPCS: 36415; 80053; 80061; 82607; 82652; 82728; 83036; 83550; 83970; 84425; 84443; 85025